=== PATIENT | female | born 1945 | race Caucasian/White ===

== ENCOUNTER 2022-12-01 16:52 | Emergency (ER) | payer MEDICARE, SELFPAY ==
--- NOTE | ~2022-12-01 | CT_ITS ---
CT of the Abdomen and Pelvis: Indication: Back pain, renal mass Technique: 2.5 mm axial scans were obtained through the abdomen and pelvis following intravenous adm inistration of 100 cc of Omnipaque 350. Dose reduction technique was used on this scan by utilizing a utomated exposure control and iterative reconstruction technique. The dose-length product (DLP) was 5 27.64 mGy-cm. Findings: Scans through the lung bases demonstrate multiple pulmonary nodules, largest measuring 13 mm in diameter, consistent with metastatic disease. The liver, spleen, pancreas, adrenals and right kidney are within normal limits. Cholelithiasis noted . There is a 7.2 x 7.0 x 5.6 cm left upper pole renal mass, with heterogeneous, predominantly periphe ral enhancement and central necrosis, consistent with renal cell carcinoma. There is metastatic adeno param medial to the left kidney measuring 2.6 x 2.5 x 4.1 cm (coronal image 66, axial image 55). Ther e are atherosclerotic calcifications of the aorta. No bowel obstruction or bowel wall thickening. There is no evidence to suggest acute appendicitis. Images through the pelvis were performed. Urinary bladder unremarkable. No pelvic mass evident. No as cites. There are mild compression deformity of T11 and T12, with mild heterogeneous appearance, which could indicate underlying osseous metastatic disease. Impression: 7.2 x 7.0 x 5.6 cm left upper pole renal cell carcinoma, as detailed above. 2.6 x 2.5 x 4.1 cm metastatic adenopathy medial to the left kidney. Numerous pulmonary metastases seen at the visualized lung bases. T11 and T12 compression fractures, possibly pathologic. MR of the thoracic spine recommended to [place] r assess the underlying marrow signal characteristics. Reviewed, dictated and finalized at [facility]. Impression: 7.2 x 7.0 x 5.6 cm left upper pole renal cell carcinoma, as detailed above. 2.6 x 2.5 x 4.1 cm metastatic adenopathy medial to the left kidney. Numerous pulmonary metastases seen at the visualized lung bases. T11 and T12 compression fractures, possibly pathologic. MR of the thoracic spin e recommended to better assess the underlying marrow signal characteristics.
--- NOTE | ~2022-12-01 | CT_ITS ---
Non-contrast Head CT History: Altered mental status Technique: Axial non-contrast imaging of the brain was performed. Dose reduction technique was used on this scan by utilizing automated exposure control and iterative reconstruction technique. The dose -length product (DLP) was 605.33 mGy-cm. Findings: There is no evidence of intracranial hemorrhage, mass lesion, or acute infarct. Brain par enchyma appears normal. The ventricles and subarachnoid spaces are normal in size. The calvarium ap pears normal. The visualized paranasal sinuses and mastoid air cells are clear. Impression: No significant abnormality seen. Reviewed, dictated and finalized at location . Impression: No significant abnormality seen.
--- NOTE | ~2022-12-01 | XR_ITS ---
EXAMINATION: XR chest 1V portable DATE: 12/01/2022 22:27 INDICATION: Altered mental status. TECHNIQUE: A single frontal view of the chest was obtained. COMPARISON: None. FINDINGS: Calcified pulmonary nodules and calcified hilar lymph nodes are consistent with old granulo matous disease. No pleural effusion or pneumothorax. The heart size is normal. IMPRESSION: 1. No acute cardiopulmonary disease. Reviewed, dictated and finalized at location E.
[2022-12-01 16:53] VITALS: BP 190/84; PULSE 94; RESP 18; TEMP 36.7; O2SAT 97
--- NOTE | 2022-12-01 21:50 | ECG_ITS ---
Measurements Intervals [place] Rate: 98 P: 52 TX: 150 QRS: -5 QRSD: 85 T: 69 QT: 349 QTc: 447 Interpretive Statements SINUS RHYTHM POSSIBLE LEFT ATRIAL ENLARGEMENT [-0.1mV P WAVE IN V1/V2] BORDERLINE ECG NO PREVIOUS ECG AVAILABLE FOR COMPARISON Electronically Signed On 12-02-2022 12:01:59 CDT by Nando Mendez M.D.
[2022-12-01] MEDS: SODIUM CHLORIDE 0.9% IV 1,000 ML 999 ML IV CONT (22:09)
[2022-12-01 22:14] LABS: Basophils Absolute Auto 0.1 K/mm3 (0.0-0.1); Basophils Percent Auto 0.7 % (0.2-1.2); Eosinophils Absolute Auto 0.2 K/mm3 (0-0.3); Eosinophils Percent Auto 1.9 % (0-4.4); Hematocrit 39.4 % (37.0-47.0); Hemoglobin 12.5 g/dL (12.0-15.0); Immature Granulocyte Absolute 0.05 K/mm3 (0.00-0.031); Immature Granulocyte Percent A 0.5 % (0-0.5); Lymphocytes Absolute Auto 1.75 K/mm3 (0.9-3.2); Lymphocytes Percent Auto 17.4 % (18.3-44.2); Mean Corpuscular HGB Conc 31.7 g/dl (32-36); Mean Corpuscular Hemoglobin 27.7 pg (26-34); Mean Corpuscular Volume 87.2 fl (80-100); Mean Platelet Volume 10.5 fl (7.4-10.4); Monocytes Absolute Auto 0.9 K/mm3 (0.1-0.6); Neutrophils Absolute Auto 7.1 K/mm3 (1.3-6.7); Neutrophils Percent Auto 70.5 % (45.5-73.1); Platelet Count Result 316 k/mm3 (150-375); Red Blood Count 4.52 M/mm3 (4.2-5.4); Red Cell Distribution Width 13.8 % (11.5-14.5); White Blood Count 10.1 K/mm3 (4.5-10.0)
[2022-12-01 22:23] LABS: Glucose Point of Care 173 mg/dl (65-105)
[2022-12-01 22:30] LABS: Lactic Acid Reflex 1.4 mmol/L (0.7-2.0)
[2022-12-01 22:39] LABS: Troponin I < 0.012 ng/mL (0.000-0.034)
[2022-12-01 22:48] LABS: Alanine Aminotransferase 18 U/L (6-35); Albumin Level 4.6 g/dL (3.5-5.1); Alkaline Phosphatase 332 U/L (38-126); Anion Gap 14 mmol/L (8-16); Aspartate Amino Transferase 39 U/L (14-36); Bilirubin,Total 0.9 mg/dL (0.2-1.3); Blood Urea Nitrogen 20 mg/dL (7-17); Calcium 9.8 mg/dL (8.4-10.2); Carbon Dioxide 18 mmol/L (22-30); Chloride 107 mmol/L (98-107); Estimated CRCL calculation 23 ml/min; Estimated Glomerular Filt Rate 34; Glucose 165 mg/dL (65-110); Magnesium 1.5 mg/dL (1.6-2.3); Potassium 4.7 mmol/L (3.4-5.0); Sodium 139 mmol/L (137-145)
[2022-12-01 22:55] LABS: Influenza A QL RT-PCR Negative (Negative); Influenza B QL RT-PCR Negative (Negative); SARS-CoV-2 RNA PCR Negative (Negative)
[2022-12-01 23:31] LABS: Appearance Urine Cloudy (Clear); Bacteria Urine None Seen /hpf; Bilirubin Urine Negative (Negative); Blood Urine Negative (Negative); Color Urine Dark Yellow (Yellow); Glucose Urine UA Negative (Negative); Ketones Urine 1+ mg/dL (Negative); Leukocyte Esterase Ur Negative LEU/UL (Negative); Need Manual Microscopic Reviewed; Nitrate Urine Negative (Negative); Non Pathogenic Casts >20; Protein Urine 2+ mg/dL (Negative); RBC Urine 0-2 /hpf (0-2); Specific Grav Ur 1.022 (1.001-1.035); Squamous Epithelial Cell Urine Moderate /hpf (Few); WBC Urine 0-5 /hpf
[2022-12-01 23:41] VITALS: BP 162/67; PULSE 91; RESP 20; O2SAT 100
[2022-12-01] MEDS: MAGNESIUM SULF 2 GM/WATER 50ML 2 GM/50 ML BAG IVPB (23:43)
[2022-12-01 23:50] LABS: Add Urine Microscopic? YES
[2022-12-02] VITALS (9 sets, daily range): BP systolic 118–167; BP diastolic 55–87; PULSE 75–87; RESP 16–22; O2SAT 96–100
[2022-12-02 00:22] LABS: Procalcitonin 0.1 ng/mL
--- NOTE | 2022-12-02 00:47 | ED.GENADULT ---
HPI - General Adult General Chief complaint: Altered Mental Status Stated complaint: AMS, pain in lower back Time Seen by Provider: 12/01/22 21:52 History of Present Illness HPI narrative: Patient is 77-year-old female who presents the emergency department with chief complaint of flank pain and generalized weakness. Patient recently was diagnosed with a mass at a another facility in her renal area the family has noticed that she has been less active not really eating and drinking and reports that she has been somewhat confused at times. The family reports that they have not seen an oncologist she had not had a biopsy yet. Related Data Allergies Allergy/AdvReac Type Severity Reaction Status Date / Time Sulfa (Sulfonamide Allergy Mild HIVES Verified 12/01/22 23:45 Antibiotics) Penicillins Allergy Unknown Unknown Verified 12/01/22 23:45 Review of Systems Review of Systems: A 10 system review of systems was completed on the patient and is negative except for what is stated in the HPI. Nursing and ancillary documentation was reviewed. Exam Narrative: GENERAL: Well-appearing, well-nourished, and in no acute distress. HEAD: Normocephalic, atraumatic. EYES: PERRLA and EOMI. ENT: Nares clear, no rhinorrhea or epistaxis. Mucous membranes moist. NECK: Supple. CHEST: Clear to auscultation. No respiratory distress. HEART: Regular rate and rhythm. No murmur heard. Normal peripheral pulses. ABDOMEN: Soft, nontender, nondistended, normal active bowel sounds. EXTREMITIES: Normal range of motion. No edema. SKIN: Warm, dry, no rash. NEURO: No focal deficits. Alert and oriented x3. PSYCH: Normal mood and affect. Course Vital Signs Vital signs: Vital Signs Temperature 36.7 C 12/01/22 16:53 Pulse Rate 94 12/01/22 16:53 Respiratory Rate 18 12/01/22 16:53 Blood Pressure 190/84 H 12/01/22 16:53 Pulse Oximetry 97 12/01/22 16:53 Oxygen Delivery Room Air 12/01/22 16:53 Temperature 36.7 C 12/01/22 16:53 Pulse Rate 75 12/02/22 06:14 Respiratory Rate 16 12/02/22 06:14 Blood Pressure 158/58 H 12/02/22 06:14 Pulse Oximetry 96 12/02/22 06:14 Oxygen Delivery Room Air 12/01/22 16:53 Medical Decision Making MDM Narrative Medical decision making narrative: Differential diagnosis includes metastatic lesions, intracranial hemorrhage, pathologic fracture, electrolyte abnormality, UTI, dehydration Laboratory studies were obtained showed a white count of 10.1 electrolytes showed BUN 20 and creatinine 1.5 magnesium was 1.5 procalcitonin 0.1 troponin was less than 0.012 urinalysis showed no evidence of UTI COVID was negative flu was negative CT head showed no evidence of acute intercranial pathology Chest x-ray showed no focal findings CT abdomen pelvis showed 7.2 x 7.0 x 5.6 cm left upper pole renal cell carcinoma, as detailed above. 2.6 x 2.5 x 4.1 cm metastatic adenopathy medial to the left kidney. Numerous pulmonary metastases seen at the visualized lung bases. T11 and T12 compression fractures, possibly pathologic. MR of the thoracic spine recommended to better assess the underlying marrow signal characteristics Case was discussed with neurosurgery at [facility] as [facility] had no availability at this time the [facility] neurosurgery service recommended the patient come to the emergency department as a time critical transfer patient does currently have no focal neurological deficit. Case was discussed with the ER after being accepted by neurosurgery and the patient was excepted the ER by Dr. Willoughby Vital Signs Vital Signs: Vital Signs Temperature 36.7 C 12/01/22 16:53 Pulse Rate 94 12/01/22 16:53 Respiratory Rate 18 12/01/22 16:53 Blood Pressure 190/84 H 12/01/22 16:53 Pulse Oximetry 97 12/01/22 16:53 Oxygen Delivery Room Air 12/01/22 16:53 Temperature 36.7 C 12/01/22 16:53 Pulse Rate 75 12/02/22 06:14 Respiratory Rate 16 12/02/22 06:14 B
[2022-12-02 01:10] LABS: INR 1.2; Prothrombin Time 15.5 Seconds (11.1-14.7)
[2022-12-02 01:11] LABS: Partial Thromboplastin Time 30.6 SECONDS (22.3-36.8)
[2022-12-02 01:54] LABS: Troponin I < 0.012 ng/mL (0.000-0.034)
== END 2022-12-02 11:25 | disposition short-term general hospital (02) ==
PROVIDERS: Emergency Provider Emergency Medicine
DX: S22.080A Wedge compression fracture of T11-T12 vertebra, initial encounter for closed fracture (principal); C64.2 Malignant neoplasm of left kidney, except renal pelvis; Z20.822 Contact with and (suspected) exposure to COVID-19; X58.XXXA Exposure to other specified factors, initial encounter; R53.1 Weakness
CPT/HCPCS: 36415; 70450; 71045; 74177; 80053; 81001; 82948; 83605; 83735; 84145; 84484; 85025; 85610; 85730; 87636; 93005; 96361; 96365; 99285; J3475; J7030; Q9967